=== PATIENT | female | born 1980 | race Caucasian/White ===

== ENCOUNTER 2016-08-02 20:17 | Emergency (ER) | payer BC ==
[~2016-08-02] VITALS: Ht 157.5 cm; Wt 83.9 kg
[~2016-08-02 20:17] MED LIST: AMT10T PO; BUPR300T43 PO; CYCL10TA45 PO; GBPN300C PO; HYDR-3702 PO; HYDR-3719 PO; HYDR-700 PO; IBUP200C PO; LSNP20T PO; ONDA4TAB8 PO; ONDA8TAB9 PO; POTA10CA43 PO
[2016-08-02] MEDS ORDERED: KETOROLAC 60 MG/2 ML (TORADOL) VIAL IM ONE (22:00)
[2016-08-02] MEDS ORDERED: PROMETHAZINE 25 MG/ML (PHENERGAN) 1 ML VIAL IM ONE (22:00)
[2016-08-02] MEDS ORDERED: HYDROmorphone 1 MG/ML (DILAUDID) SYRINGE IM ONE (22:00)
--- NOTE | 2016-08-02 22:16 | NUR ---
REPORT TAKEN FROM BARBIE JARAMILLO AND ACCEPTED CARE OF PT
[2016-08-02 22:35] VITALS: BP 147/98
--- NOTE | 2016-08-02 22:35 | NUR ---
ALL MEDS WERE GIVEN IM SO NO IV START STOP TIMES TO RECORD
[2016-08-03] MEDS ORDERED: OXYC-109 PO (02:20)
== END 2016-08-02 22:37 | disposition home or self-care (01) ==
LOC: ED 20:19
DX: M54.2 Cervicalgia (principal)
CPT/HCPCS: 96372; 99282; J1170; J1885; J2550

== ENCOUNTER 2016-08-04 12:14 | Emergency (ER) | payer BC ==
[~2016-08-04] VITALS: Ht 157.5 cm; Wt 93.0 kg
[~2016-08-04 12:14] MED LIST changes: +OXYC-109 PO
--- NOTE | 2016-08-04 13:20 | NUR ---
Per MD request asked patient regarding her [place] doctors name and clinic name and phone number for continuation of care. Patient stated her clinic name is [facility] and Dr. Archuleta is her doctors name. Phone number for group is [phone]. Clinic was called and medical information to be faxed to [facility]. MAYRA
--- NOTE | 2016-08-04 13:30 | NUR ---
Received faxed information from [facility]. Patient notified this information has been received. Patient was given two warmed blankets.
--- NOTE | 2016-08-04 13:54 | NUR ---
Patient notified MD is reviewing faxed records from [facility] at this time. MAYRA
[2016-08-04] MEDS ORDERED: HYDROmorphone 2 MG/ML (DILAUDID) 1 ML SYRINGE IM ONE (14:20)
[2016-08-04] MEDS ORDERED: [UNRECOGNIZED DRUG - CODE] PO (14:50)
[2016-08-04] MEDS ORDERED: METH4TAB27 PO (14:50)
[2016-08-04] MEDS ORDERED: OXYC1TAB12 PO (14:50)
[2016-08-04 17:06] VITALS: BP 146/100
== END 2016-08-04 15:23 | disposition home or self-care (01) ==
LOC: ED 12:17
DX: G89.29 Other chronic pain (principal)
CPT/HCPCS: 96372; 99282; J1170; 99283